=== PATIENT | male | born 1990 | race Caucasian/White ===

== ENCOUNTER 2016-09-06 10:45 | Emergency (ER) | payer MEDICAID, OTHER ==
[~2016-09-06] VITALS: Ht 172.7 cm; Wt 71.0 kg
[2016-09-06] MEDS ORDERED: MethylPREDNISolone SOD SUCC 125 MG/2 ML VIAL IVP ONE (11:15)
[2016-09-06] MEDS ORDERED: DiphenhydrAMINE HCL 50 MG/ML VIAL IVP ONE (11:15)
[2016-09-06] MEDS ORDERED: FAMOTIDINE 10 MG/ML 2 ML VIAL IVP ONE (11:15)
[2016-09-06] MEDS ORDERED: TraMADol HCL 50 MG TABLET PO ONE (12:00)
[2016-09-06] MEDS ORDERED: LORazepam 1 MG TABLET PO ONE (14:15)
[2016-09-06] MEDS ORDERED: IBUPROFEN 600 MG TABLET PO ONE (14:15)
[2016-09-06 14:29] VITALS: BP 122/82
== END 2016-09-06 14:32 | disposition home or self-care (01) ==
LOC: EMS 10:46
DX: T78.40XA Allergy, unspecified, initial encounter (principal); Z88.0 Allergy status to penicillin; Z91.040 Latex allergy status
CPT/HCPCS: 96374; 96375; 99284; J1200; J3490; J2930

== ENCOUNTER 2017-05-24 18:50 | Emergency (ER) | payer OTHER ==
[~2017-05-24] VITALS: Ht 172.7 cm; Wt 72.7 kg
[2017-05-24] MEDS ORDERED: ALPR1TAB7 PO (19:24)
[2017-05-24] MEDS ORDERED: CETI10TA58 PO (19:24)
[2017-05-24] MEDS ORDERED: IBUPROFEN 600 MG TABLET PO ONE (20:45)
[2017-05-24 21:55] VITALS: BP 123/76
== END 2017-05-24 22:43 | disposition home or self-care (01) ==
LOC: EMS 18:55
DX: S52.125A Nondisplaced fracture of head of left radius, initial encounter for closed fracture (principal); S63.502A Unspecified sprain of left wrist, initial encounter; Z88.0 Allergy status to penicillin; Z91.040 Latex allergy status; Y04.0XXA Assault by unarmed brawl or fight, initial encounter; Y93.89 Activity, other specified; Y92.89 Other specified places as the place of occurrence of the external cause; Y99.8 Other external cause status
CPT/HCPCS: 29105; 99284